=== PATIENT | male | born 1945 | race Caucasian/White ===

== ENCOUNTER 2017-02-12 13:05 | Emergency (ER) | payer OTHER ==
[2017-02-12 13:45] VITALS: BP 145/56
--- NOTE | 2017-02-12 13:45 | UC ---
Dental HPI - HPI Summary HPI Summary: 71 YEAR OLD MALE PRESENTS WITH DENTAL PAIN. HE HAD A RIGHT LOWER JAW ROOT CANAL. - History of Current Complaint Stated Complaint: RIGHT JAW PAIN Time Seen by Provider: 02/12/17 13:42 - Allergies/Home Medications Allergies/Adverse Reactions: Allergies Allergy/AdvReac Type Severity Reaction Status Date / Time Pseudoephedrine AdvReac HYPERSENSIT Verified 02/12/17 13:45 [From Actifed] IVITY Triprolidine [From Actifed] AdvReac HYPERSENSIT Verified 02/12/17 13:45 IVITY Home Medications: Home Medications Levothyroxine TAB* [Synthroid 137 MCG TAB*] 137 mcg PO SEE INSTRUCTIONS [History Confirmed 02/12/17] Levothyroxine TAB* [Synthroid 150 MCG TAB*] 150 mcg PO SEE INSTRUCTIONS [History Confirmed 02/12/17] Lipoflavanoid 1 dose PO DAILY 02/12/17 [History Confirmed 02/12/17] Tiotropium CAP.INH* [Spiriva CAP.INH*] 1 cap.inh INH DAILY 02/12/17 [History Confirmed 02/12/17] PMH/Surg Hx/FS Hx/Imm Hx - Surgical History Surgical History: Yes Surgery Procedure, Year, and Place: 2013 HERNIA ,. 2014 INGUINAL HERNIA,. 2006 CARDIAC STENT, [facility]. 2009 BILATERAL CATARACT SURG[place] WITH [place] [facility] [place]. [place], [place]. 1969' WIRE REMOVED FROM RIGHT KNEE, [facility] [place]. 1969' BONE GRAFT DONE RIGHT LEG, [facility]. 1969' SURGERY RIGHT KNEE X 2,. 1989' LOWER LEG FOR COMPOUND FRACTURE TIB-FIB, [place] LEFT KNEE X 2, [facility],. 2010 LEFT HAND RING FINGER SURGERY, [facility] [place], [place] AND [facility] [facility]ICE - Social History Alcohol Use: Rare Substance Use Type: None Smoking Status (MU): Heavy Every Day Tobacco Smoker Type: Cigarettes Amount Used/How Often: 1.5 PPD Length of Time of Smoking/Using Tobacco: OFF AND ON 12+ YEARS Have You Smoked in the Last Year: Yes Review of Systems Constitutional: Negative Skin: Negative Eyes: Negative ENT: Negative, Dental Pain Respiratory: Negative Cardiovascular: Negative Gastrointestinal: Negative Genitourinary: Negative Motor: Negative Neurovascular: Negative Musculoskeletal: Negative Neurological: Negative Psychological: Negative All Other Systems Reviewed And Are Negative: Yes Physical Exam Triage Information Reviewed: Yes Eye Exam: Normal ENT Exam: Normal Dental: Positive: Gross Decay/Caries @, Abscess @ Neck exam: Normal Neck: Positive: 1 Respiratory Exam: Normal Cardiovascular Exam: Normal Abdominal Exam: Normal Musculoskeletal Exam: Normal Neurological Exam: Normal Psychological Exam: Normal Skin Exam: Normal Dental Complaint Course/Dx - Differential Dx/Diagnosis Provider Diagnoses: RIGHT LOWER JAW PAIN Discharge - Discharge Plan Condition: Stable Disposition: HOME Prescriptions: Amoxicillin/Clavulanate TAB* [Augmentin TAB 875*] 875 mg PO BID #20 tab Chlorhexidine MOUTHWASH 0.12%* [Peridex Mouth Wash 0.12%*] 15 ml MT TID PC #1 btl Naproxen [Naproxen DR 500 MG TAB] 500 mg PO BID #30 tab Patient Education Materials: Dental Abscess (ED) Referrals: Naldo Caputo MD [Primary Care Provider] -
== END 2017-02-12 14:15 | disposition home or self-care (01) ==
LOC: UCCORT 13:05
DX: R68.84 Jaw pain (principal); F17.210 Nicotine dependence, cigarettes, uncomplicated
CPT/HCPCS: 99212; G0463

== ENCOUNTER 2019-01-24 12:49 | Emergency (ER) | payer MEDICARE ==
[2019-01-24 13:14] VITALS: BP 125/42
--- NOTE | 2019-01-24 13:23 | UC ---
Truncal Trauma HPI - HPI Summary HPI Summary: c/o reaching down to nut picker a log, injuring R chest area . States hurts to change position, and touch worsens pain. Pain also now radiating to back. - History Of Current Complaint Chief Complaint: UCGeneralIllness Stated Complaint: RT SIDE CHEST/BACK PAIN Time Seen by Provider: 01/24/19 13:15 Hx Obtained From: Patient Onset/Duration: Sudden Onset, Lasting Days Onset Of Pain: Immediate Severity Initially: Mild Severity Currently: Mild Pain Intensity: 2 Mechanism Of Injury: Twisted Aggravating Factor(s): Movement - Allergies/Home Medications Allergies/Adverse Reactions: Allergies Allergy/AdvReac Type Severity Reaction Status Date / Time pseudoephedrine AdvReac hypersensit Verified 01/24/19 13:02 [From Actifed] ivity triprolidine [From Actifed] AdvReac hypersensit Verified 01/24/19 13:02 ivity Home Medications: Home Medications Acetaminophen [APAP] 650 mg PO Q4H PRN 01/24/19 [History Confirmed 01/24/19] Naproxen Sodium [Aleve] 440 mg PO ONCE PRN 01/24/19 [History Confirmed 01/24/19] PMH/Surg Hx/FS Hx/Imm Hx Previously Healthy: Yes - Surgical History Surgical History: Yes Surgery Procedure, Year, and Place: 2013 HERNIA ,. 2014 INGUINAL HERNIA,. 2006 CARDIAC STENT, [facility]. 2009 BILATERAL CATARACT SURGERY WITH IOL IMPLANTS, [facility] [place]. 1991 [place]OP[place], [place]. 1969' WIRE REMOVED FROM RIGHT KNEE, [facility]. 1969' BONE GRAFT DONE RIGHT LEG, [facility]. 1969' SURGERY RIGHT KNEE X 2,. 1989'S LOWER LEG FOR COMPOUND FRACTURE TIB-FIB, [place] LEFT KNEE X 2, [facility],. 2010 LEFT HAND RING FINGER SURGERY, [facility] [place]. [place]ETH [place]CTION, [facility] [place] [facility] [place] [facility]. Lt ENDARECTOMY -NO STENT ANGIIOPLASTY - Family History Known Family History: Positive: Hypertension - Social History Alcohol Use: Rare Alcohol Amount: 2-3 X A YEAR Substance Use Type: None Smoking Status (MU): Heavy Every Day Tobacco Smoker Type: Cigarettes Amount Used/How Often: 1.5 PPD Length of Time of Smoking/Using Tobacco: OFF AND ON 12+ YEARS Have You Smoked in the Last Year: Yes Household Exposure Type: Cigarettes Review of Systems All Other Systems Reviewed And Are Negative: Yes Respiratory: Positive: Cough Musculoskeletal: Positive: Myalgia Physical Exam Triage Information Reviewed: Yes Appearance: Well-Appearing, Well-Nourished, Pain Distress Vital Signs: Initial Vital Signs Temp 98.9 F 01/24/19 13:09 Pulse 66 01/24/19 13:09 Resp 16 01/24/19 13:09 BP 125/42 01/24/19 13:09 Pulse Ox 95 01/24/19 13:09 Vital Signs Reviewed: Yes Eye Exam: Normal ENT Exam: Normal Dental Exam: Normal Neck exam: Normal Respiratory: Positive: Chest non-tender, Lungs clear, Decreased breath sounds Cardiovascular Exam: Normal Cardiovascular: Positive: RRR, No Murmur, Pulses Normal Abdominal Exam: Normal Abdomen Description: Positive: Nontender, No Organomegaly, Soft Bowel Sounds: Positive: Present Musculoskeletal: Positive: Strength Intact, ROM Intact, No Edema, Other: - pain in the right pectoral with movement Neurological Exam: Normal Psychological Exam: Normal Skin Exam: Normal Truncal Trauma Course/Dx - Course Course Of Treatment: hx obtained, exam performed ,meds reviewed, educated on heating and stretching and use of motrin for pain - Differential Dx/Diagnosis Differential Diagnosis/HQI/PQRI: Chest Wall Contusion, Rib Fracture, Other - muscle strain Provider Diagnosis: Muscle strain of chest wall Discharge - Sign-Out/Discharge Documenting (check all that apply): Patient Departure All imaging exams completed and their final reports reviewed: No Studies - Discharge Plan Condition: Stable Disposition: HOME Patient Education Materials: Muscle Strain (DC) Referrals: Naldo Caputo MD [Primary Care Provider] - Additional Instructions: 1. heat the affected area for 20 min. 2. Stretch before and after activity 3. Continue with motrin for the next few days and use your inhalers for any cough. 4. Follow up if not improving in the next few days - Billing Disposition and Condition Condition: STABLE Disposition: Home
== END 2019-01-24 13:32 | disposition home or self-care (01) ==
LOC: UCCORT 12:49
DX: S29.011A Strain of muscle and tendon of front wall of thorax, initial encounter (principal); X50.0XXA Overexertion from strenuous movement or load, initial encounter; Y93.89 Activity, other specified; Y92.9 Unspecified place or not applicable; F17.210 Nicotine dependence, cigarettes, uncomplicated
CPT/HCPCS: 99212; G0463